=== PATIENT | male | born 1995 | race Caucasian/White ===

== ENCOUNTER 2021-01-07 19:03 | Emergency (ER) | payer SELFPAY ==
[~2021-01-07] VITALS: Ht 175.3 cm; Wt 100.0 kg
[2021-01-07] MEDS ORDERED: LIDOCAINE HCL 1% 20ML VIAL (Pyxis) INJ INFIL NR (19:15)
[2021-01-07] MEDS ORDERED: CEPHALEXIN 250MG CAPSULE PO NR (19:15)
[2021-01-07] MEDS ORDERED: TETANUS, DIPHTHERIA, PERTUSSIS VAC/PF 0.5ML (>10YR OLD) IM ONE (19:15)
[2021-01-07] MEDS ORDERED: FENTANYL CITRATE/PF 50MCG/ML 2ML VIAL IV ONE (19:45)
[2021-01-07 22:15] VITALS: BP 164/96
== END 2021-01-07 22:35 | disposition home or self-care (01) ==
LOC: ER 19:03
DX: S52.92XA Unspecified fracture of left forearm, initial encounter for closed fracture (principal); W34.00XA Accidental discharge from unspecified firearms or gun, initial encounter; Y93.89 Activity, other specified; Y92.89 Other specified places as the place of occurrence of the external cause; Y99.8 Other external cause status
CPT/HCPCS: 12001; 73090; 96374; 99284; J3010; J3490